=== PATIENT | female | born 1950 | race Caucasian/White ===

== ENCOUNTER 2021-10-31 15:00 | Outpatient (RCR) | payer MEDICARE, OTHER, SELFPAY | END 2021-11-14 15:09 | disposition home or self-care (01) | LOC: HO.PT 15:00 | PROVIDERS: Visit Provider Physician Assistant Surgical | DX: M70.62 Trochanteric bursitis, left hip (principal) | CPT/HCPCS: 97110; 97140; 97161; 97530; 97535 ==

== ENCOUNTER → 2021-12-19 13:23 | Outpatient (BNVA) | payer MEDICARE, OTHER, SELFPAY | DX: N39.0 Urinary tract infection, site not specified (principal) | CPT/HCPCS: 51798; 99202 ==

== ENCOUNTER → 2022-01-19 13:16 | Outpatient (BNVA) | payer MEDICARE, OTHER, SELFPAY | DX: Z13.89 Encounter for screening for other disorder (principal) | CPT/HCPCS: Q3014 ==

== ENCOUNTER 2022-04-14 11:36 | Outpatient (REF) | payer MEDICARE, OTHER, SELFPAY | END 2022-04-14 11:37 | disposition home or self-care (01) | LOC: HO.10HDL 11:36 | DX: N39.0 Urinary tract infection, site not specified (principal) | CPT/HCPCS: 87086 ==

== ENCOUNTER 2022-05-09 07:55 | Outpatient (REF) | payer MEDICARE, OTHER, SELFPAY ==
[2022-05-09 11:14] LABS: Cortisol Random < 1.0 ug/dL
== END 2022-05-09 07:56 | disposition home or self-care (01) ==
LOC: HO.LAB 07:55
PROVIDERS: Visit Provider Internal Medicine
DX: T14.8XXA Other injury of unspecified body region, initial encounter (principal)
CPT/HCPCS: 36415; 82533

== ENCOUNTER 2022-05-11 09:49 | Outpatient (REF) | payer MEDICARE, OTHER, SELFPAY ==
[2022-05-18 10:12] LABS: Total Volume, 24 Hr Urine NTV mL
== END 2022-05-11 09:50 | disposition home or self-care (01) ==
LOC: HO.LNP 09:49
PROVIDERS: Visit Provider Internal Medicine
DX: T14.8XXA Other injury of unspecified body region, initial encounter (principal)
CPT/HCPCS: 82530

== ENCOUNTER → 2023-02-17 08:44 | Outpatient (BNVA) | payer MEDICARE, OTHER, SELFPAY | PROVIDERS: Visit Provider Nurse Practitioner Family | DX: N39.0 Urinary tract infection, site not specified (principal) | CPT/HCPCS: 51798; 99212 ==

== ENCOUNTER 2023-12-30 13:00 | Outpatient (RCR) | payer MEDICARE, OTHER, SELFPAY | END 2023-12-30 15:36 | disposition home or self-care (01) | LOC: HO.PT 13:00 | PROVIDERS: PCP Internal Medicine; Visit Provider Physician Assistant | DX: M17.0 Bilateral primary osteoarthritis of knee (principal) | CPT/HCPCS: 97110; 97112; 97161 ==

== ENCOUNTER 2024-04-12 14:30 | Outpatient (AMB) | payer MEDICARE, OTHER, SELFPAY ==
--- NOTE | 2024-04-12 14:38 | A.OFFVIS_ITS ---
Intake Visit Reasons: 1y/PVR Intake Note: Patient is present for follow up recurrent uti Urology Medications: estrace Blood Thinner: none PVR: 0ml's Head Girls Golf Coach Required: No Accompanied by: Self / Same As Patient Allergies No Known Allergies Allergy (Verified 04/12/24 15:00) Medication List - Last Reconciled 04/12/24 by BERLIN Palacios ciprofloxacin HCl 250 mg orally 3X/WEEK; 90 days estradiol 0.01%(0.1mg/gram) (Estrace) pea sized amount per urethra daily; 30 days gabapentin 100 mg PO BEDTIME lisinopril 2.5 mg PO DAILY lorazepam 0.5 mg PO BEDTIME PRN meloxicam 15 mg PO DAILY HPI Comments Details: Pam is a pleasant 73-year-old female patient. She has a past medical history of dysuria, hypertension, insomnia, and recurrent urinary tract infections. She presents to the office today for follow-up of her recurrent urinary tract infections. When asked she reports to be doing and feeling well. She reports compliance with prophylactic ciprofloxacin as prescribed as well as her Estrace cream. She discusses how helpful this has been as she had previously been experiencing multiple urinary tract infections. She reports ever since having her last microgen 12/30 and being treated per results she has been without any UTI's or UTI symptoms. She denies urinary urgency, urinary frequency, incontinence, nocturia, hematuria, dysuria, foul smelling urine, changes to urinary stream, flank pain, fever, and or chills. She is happy with her current voiding parameters. In office urinalysis within normal limits. PVR 0 mL. Patient otherwise denies any issues or concerns at this time. [facility] Medical History Recurrent urinary tract infection Acute insomnia HTN (hypertension) Dysuria Review of Systems Const All systems reviewed & are unremarkable except as noted in HPI and below Reports no additional complaints Eyes Reports no additional complaints ENT Reports no additional complaints Card Reports as per HPI Resp Reports no additional complaints GI Reports no additional complaints Reports as per HPI Musc Reports no additional complaints Neuro Reports no additional complaints Psych Reports no additional complaints Endo Reports no additional complaints Matthew/Lymph Reports no additional complaints Aller/Immun Reports no additional complaints Physical Exam Const General: cooperative, healthy appearing, comfortable, no acute distress, well developed, alert and awake Orientation/consciousness: patient oriented x3 Limitations: no limitations HEENT Head: Yes normal to inspection, Yes normocephalic and Yes atraumatic Ears: hearing grossly normal bilaterally Eyes General: appearance normal, both eyes and all related structures Neck Neck: Yes normal visual inspection and Yes trachea midline Chest Chest palpation & inspection: normal inspection of the chest Resp Effort & Inspection: normal respiratory effort and able to speak in complete sentences Cardio Rate: regular rate GI Inspection: Yes normal to inspection General: Yes no CVA tenderness Back/Spine/Pelvis Back: no CVA tenderness Skin General skin exam: no rashes or lesions noted Neuro General: patient oriented x3 Extrem General: Yes normal to inspection Psych Appearance: grossly normal and well kempt Mental Status: mental status grossly normal Speech and movement: Normal speech and movement present and Clear speech present Affect: normal affect Attitude: cooperative Thought process: Normal thought process present Thought content: Normal thought content present Insight: Fair insight present (Psych) Judgement: Fair judgement present (Psych) Results AMB Urinalysis, Automated UA Leukoctes 0 Evy/uL Last Edit by [employer] on 04/12/24 14:54 UA Nitrite Negative Last Edit by [employer] on 04/12/24 14:54 UA Urobilinogen 0.2 mg/dL Last Edit by [employer] on 04/12/24 14:54 UA Protein 0 mg/dL Last Edit by [employer] on 04/12/24 14:54 UA pH 6.0 Last Edit by [employer] on 04/12/24 14:54 UA Blood 0 Graeme/uL Last Edit by [employer] on 04/12/24 14:54 UA Specific Buckeye 0 Last Edit by [employer] on 04/12/24 14:54 UA Ketone Negative Last Edit by [employer] on 04/12/24 14:54 UA Bilirubin 0 mg/dL Last Edit by [employer] on 04/12/24 14:54 UA Glucose 0 mg/dL Last Edit by [employer] on 04/12/24 14:54 Results Reviewed Results Reviewed: Laboratory Last Values Urine pH (Auto) 6.0 04/12/24 14:50 Specific Buckeye (Auto) 0 04/12/24 14:50 Urine Protein (Auto) 0 mg/dL 04/12/24 14:50 Glucose (UA)(Auto) 0 mg/dL 04/12/24 14:50 Urine Ketones (Auto) Negative 04/12/24 14:50 Urine Blood (Auto) 0 Graeme/uL 04/12/24 14:50 Urine Nitrite (Auto) Negative 04/12/24 14:50 Urine Bilirubin (Auto) 0 mg/dL 04/12/24 14:50 Urine Urobilinogen (Auto) 0.2 mg/dL 04/12/24 14:50 Leukocyte Esterase (Auto) 0 Evy/uL 04/12/24 14:50 Assessment & Plan Assessment & Plan (1) Recurrent urinary tract infection: Code(s): N39.0 - Urinary tract infection, site not specified Category: Medical Plan In office urinalysis with the patient today; as noted above. PVR 0ml's. She reports be happy with current voiding parameters. She currently denies any bothersome urinary issues or concerns. Continue Estrace cream and Cipro as prescribed; refills provided Discussed UTI prevention with D mannose supplement, vitamin-C, increasing fluid intake, behavioral therapy with timed voiding, perineal hygiene and postcoital voiding, and management of constipation with stool softeners and increased fiber intake. Follow up in 1 year with PVR; or sooner with any issues, concerns, and or questions. Orders: Orders AMB Urinalysis Automated Today Z13.9 - Encounter for screening, unspecified Medications: Refilled ciprofloxacin HCl 250 mg orally 3X/WEEK; 36 tabs 4RF 90 days Patient Instructions: The patient had an opportunity to ask questions regarding the treatment plan. All questions were answered. Physical exam, labs, and imaging were discussed and reviewed in detail. As well as risks, benefits, and discussion of treatment choices. No major barriers to understanding were identified. The patient expressed understanding and agreement with the above treatment plan. The patient was made aware they should contact our office by phone for worsening of their current condition, the appearance of new symptoms, or with any questions or concerns. Compliance is encouraged with any medications and follow up testing that is ordered. It is a privilege to be allowed the opportunity to participate in? your urological care.? Again, if you have any questions or concerns If you have any questions or concerns please do not hesitate to contact me. The office is [phone]. This note is constructed using voice recognition software. While every effort has been made to ensure accuracy deputy assessor errors may have been included. Yours sincerely, BERLIN Palacios Coding Level of Care Code Est Pt Level 3 (11779) Diagnoses Recurrent urinary tract infection N39.0
== END 2024-04-12 15:07 | disposition home or self-care (01) ==
PROVIDERS: Visit Provider Nurse Practitioner Family
DX: N39.0 Urinary tract infection, site not specified (principal); Z13.9 Encounter for screening, unspecified
CPT/HCPCS: 99213

== ENCOUNTER → 2024-04-12 14:30 | Outpatient (BNVA) | payer MEDICARE, OTHER, SELFPAY | PROVIDERS: Visit Provider Nurse Practitioner Family | DX: N39.0 Urinary tract infection, site not specified (principal) | CPT/HCPCS: 81003; 99212 ==

== ENCOUNTER 2024-05-09 09:40 | Outpatient (AMB) | payer MEDICARE, OTHER, SELFPAY ==
--- NOTE | 2024-05-09 09:47 | MHC.PC.OV ---
Vital Signs 05/09/24 09:49 Height 5 ft 8.75 in Weight 170 lb BMI 25.3 BP 138/74 Blood Pressure Location Rt brachial Position Sitting Pulse 84 Pulse Source Pulse Oximeter Pulse Oximetry (%) 99 Oxygen Delivery Method Room Air Intake Visit Reasons: BI TECHNICAL LEAD Visit Intake Note: Patient is here to establish care with [facility] Primary [facility]. Patient states she takes Bedtime Bettys at night for insomnia. Computer Security Coordinator Required: No Accompanied by: Self / Same As Patient Allergies No Known Allergies Allergy (Verified 05/09/24 09:55) Medication List - Last Reconciled 05/09/24 by Chery Weber MD ciprofloxacin HCl 250 mg orally 3X/WEEK; 90 days estradiol 0.01%(0.1mg/gram) (Estrace) pea sized amount per urethra daily; 30 days gabapentin 300 mg PO DAILY lisinopril 2.5 mg PO DAILY lorazepam 0.5 mg PO BEDTIME PRN meloxicam 15 mg PO DAILY Tobacco use date assessed: 05/09/24 Last assessed Fall Risk: 05/09/24 Dental Screening Dental Screen Date: 05/09/24 HPI HPI Comments History of Present Illness Details The patient is a 73 year old with past medical history of dysuria, hypertension, insomnia, and recurrent urinary tract infections. Transfer from [place]-Dr Velsaquez. Also following with [facility], Dr Cheek. CV: On lisinopril 2.5mg daily. Denies chest pain, exertional dyspnea. Had cardiac testing, pulmonary testing-within normal. MSK: On meloxicam 15mg daily. Bilateral knee pain-OA, hip bursitis. Urologic She reports compliance with prophylactic ciprofloxacin as prescribed as well as her Estrace cream. She discusses how helpful this has been as she had previously been experiencing multiple urinary tract infections. She reports ever since having her last microgen 12/30 and being treated per results she has been without any UTI's or UTI symptoms. She denies urinary urgency, urinary frequency, incontinence, nocturia, hematuria, dysuria, foul smelling urine, changes to urinary stream, flank pain, fever, and or chills. She is happy with her current voiding parameters. In office urinalysis within normal limits. PVR 0 mL. Patient otherwise denies any issues or concerns at this time. BH: Follows with Dr Novak. nightly takes gabapentin, THC taffy, and unisom. On lorazepam 0.5mg at bedtime as needed (if it has been like 24 hours) Preventive Mammo 09/01/2022 Colonoscopy 03/2021 Hyperplastic polyp-advised 5 year repeat. ROS see HPI PHYSICAL EXAM: GENERAL: Alert and oriented x 3. NAD EYES: EOMI. Anicteric. HENT: Moist mucous membranes. No scleral icterus. No cervical lymphadenopathy. LUNGS: Clear to auscultation bilaterally. CARDIOVASCULAR: Regular rate and rhythm. No murmur. No JVD. ABDOMEN: Soft, non-tender +bs EXTREMITIES: No edema. Non-tender. SKIN: No rashes or lesions. Warm. NEUROLOGIC: No focal neurological deficits. CN II-XII grossly intact PSYCHIATRIC: Cooperative. Appropriate mood and affect [facility] Medical History Dry skin Arthritis History of mammogram Recurrent urinary tract infection Acute insomnia HTN (hypertension) Dysuria Surgical History History of colonoscopy Family History Mother Hypertension High blood cholesterol Cardiovascular disease Brother Hypertension High blood cholesterol Stroke Brain cancer Alcoholism Sister Hypertension High blood cholesterol Stroke Colon cancer Alcoholism Social History Household Members: Family Housing: House Are you a primary geriatric personal care aide to a significant other at home: No Do you presently have visiting nurse or other home services: No Alcohol intake: current Alcohol intake frequency: a few times a month Alcohol type: wine and hard liquor Patient Tobacco Use Status: Former Tobacco user Tobacco use type: Cigarette e-Cigarette/Vaping Use: Never Used Substance Use Type: Marijuana service: No Current occupational status: retired Cognitive needs: No Hearing needs: No Vision needs: Yes (wears glasses) Questionnaire PHQ-9 Over the last 2 weeks, how often have you been bothered by any of the following problems? 1. Little interest or pleasure in doing things: not at all 2. Feeling down, depressed, or hopeless: not at all 3. Trouble falling or staying asleep, or sleeping too much: several days 4. Feeling tired or having little energy: several days 5. Poor appetite or overeating: not at all 6. Feeling bad about yourself - or that you are a failure or have let yourself or your family down: not at all 7. Trouble concentrating on things, such as reading the newspaper or watching television: not at all 8. Moving or speaking so slowly that other people could have noticed. Or the opposite - being so fidgety or restless that you have been moving around a lot more than usual: not at all 9. Thoughts that you would be better off or of hurting yourself in some way: not at all Total score: 2 Depression Screening Interpretation: Negative (neg) Depression Screening Done: Yes 74528 - PHQ-9 Billing: Yes Source: Developed by Drs. Hemanth Osuna, Analy Maki, Gianfranco Peter and colleagues, with an educational sharon from [employer] Thrive Questionnaire Date Thrive assessed: 05/09/24 I am a: Patient What is your living situation today?: I have a steady place to live Within the past 12 months, did the food you bought not last and you didn't have the money to get more?: Never true Within the past 12 months, did you worry whether your food would run out before you got money to buy more?: Never true Do you have trouble paying for medicines?: No Do you have trouble getting transportation to medical appointments?: No Do you have trouble paying your heating and electricity bill?: No Do you have trouble taking care of your child, family member or friend?: Yes Do you have trouble with day-to-day activities such as bathing, preparing meals, shopping, managing finances, etc.?: No Are you currently unemployed and looking for a job?: No Are you interested in more education?: No Please select the resources that you would like help with: None Currently or been in a relationship where the following occur: No concerns reported THRIVE Score: 0 AUDIT C Alcohol Use Questionnaire (AUDIT-C) 1. How often do you have a drink containing alcohol?: 2-4 times a month 2. How many drinks containing alcohol do you have on a typical day when you are drinking?: 1 or 2 3. How often do you have six or more drinks on one occasion?: Never Total Score: 2 TRACIE-7 AMB Questionnaire TRACIE-7 Date TRACIE - 7 assessed: 05/09/24 Feeling nervous, anxious, or on edge: 0 = Not at all Not being able to stop or control worryin = Not at all Worrying too much about different things: 0 = Not at all Trouble relaxin = Not at all Being so restless that it is hard to sit still: 0 = Not at all Becoming easily annoyed or irritable: 0 = Not at all Feeling afraid as if something awful might happen: 1 = Several days Total TRACIE-7 score (0-4 normal; 5-9 mild; 10-14 moderate; 15-21 severe): 1 Source: Developed by Drs. Hemanth Osuna, Analy Maki, Gianfranco Peter and colleagues, with an educational sharon from [employer] TRACIE-7 Assessment Billing TRACIE-7 Assessment Tool: TRACIE-7 Assessment 02257 Physical exam (Primary Care) Vital Signs: Last Vital Signs Pulse 84 05/09/24 09:49 BP 138/74 05/09/24 09:49 Pulse Ox 99 05/09/24 09:49 Oxygen Delivery Method Room Air 05/09/24 09:49 BMI result Body Mass Index 25.3 Tobacco/Smoking Status: Tobacco use Status Tobacco use date assessed 05/09/24 05/09/24 09:59 Patient Tobacco Use Status Former Tobacco user 05/09/24 10:02 Tobacco use type Cigarette 05/09/24 10:02 e-Cigarette/Vaping Use Never Used 05/09/24 10:02 PHQ-9: PHQ-9 Score PHQ-9: Total score 2 05/24/24 11:30 Depression Screening Interpretation: Negative (neg) Thrive Assessment: Date of Thrive Assessment Date Thrive assessed 05/09/24 05/09/24 10:12 Currently or been in a relationship where the following occur: No concerns reported Assessment and Plan Assessment & Plan (1) Encounter to establish care: Code(s): Z76.89 - Persons encountering health services in other specified circumstances Plan: 73 y/o to establish care. pmh, surgical, social and family history reviewed. chart updated. myalgia, arthralgia-labs ordered (2) Muscle cramping: Code(s): R25.2 - Cramp and spasm (3) HTN (hypertension): Code(s): I10 - Essential (primary) hypertension Qualifiers: Hypertension type: primary hypertension Qualified Code(s): I10 - Essential (primary) hypertension Plan: continue current medications (4) Arthritis: Code(s): M19.90 - Unspecified osteoarthritis, unspecified site Plan: labs ordered c/w mobic Orders: Orders MM screening mammo BI 05/09/24 Z12.31 - Encounter for screening mammogram for malignant neoplasm of breast Cyclic Citrullinated Peptide 05/09/24 Z13.0 - Encounter for screening for diseases of the blood and blood-forming organs and certain disorders involving the immune mechanism, R25.2 - Cramp and spasm, I10 - Essential (primary) hypertension, M19.90 - Unspecified osteoarthritis, unspecified site IRON PROFILE 05/09/24 Z13.0 - Encounter for screening for diseases of the blood and blood-forming organs and certain disorders involving the immune mechanism, R25.2 - Cramp and spasm, I10 - Essential (primary) hypertension, M19.90 - Unspecified osteoarthritis, unspecified site XR DEXA axial skeleton 05/09/24 M89.9 - Disorder of bone, unspecified, M94.9 - Disorder of cartilage, unspecified Complete Blood Count Auto Diff 05/09/24 Z13.0 - Encounter for screening for diseases of the blood and blood-forming organs and certain disorders involving the immune mechanism, R25.2 - Cramp and spasm, I10 - Essential (primary) hypertension, M19.90 - Unspecified osteoarthritis, unspecified site Comprehensive Met. Panel 05/09/24 Z13.0 - Encounter for screening for diseases of the blood and blood-forming organs and certain disorders involving the immune mechanism, R25.2 - Cramp and spasm, I10 - Essential (primary) hypertension, M19.90 - Unspecified osteoarthritis, unspecified site TSH reflex Free T4 05/09/24 Z13.0 - Encounter for screening for diseases of the blood and blood-forming organs and certain disorders involving the immune mechanism, R25.2 - Cramp and spasm, I10 - Essential (primary) hypertension, M19.90 - Unspecified osteoarthritis, unspecified site Magnesium 05/09/24 Z13.0 - Encounter for screening for diseases of the blood and blood-forming organs and certain disorders involving the immune mechanism, R25.2 - Cramp and spasm, I10 - Essential (primary) hypertension, M19.90 - Unspecified osteoarthritis, unspecified site Rheumatoid Factor 05/09/24 Z13.0 - Encounter for screening for diseases of the blood and blood-forming organs and certain disorders involving the immune mechanism, R25.2 - Cramp and spasm, I10 - Essential (primary) hypertension, M19.90 - Unspecified osteoarthritis, unspecified site Referrals Dermatology Referral D69.2 - Other nonthrombocytopenic purpura Coding Level of Care Code New Pt Level 4 (08279) Complex EM visit Add On G2211 Diagnoses Encounter to establish care Z76.89 Muscle cramping R25.2 Primary hypertension I10 Hypertension type: primary hypertension Arthritis M19.90 Additional Codes TRACIE-7 Assessment Billing - TRACIE-7 Assessment Tool: TRACIE-7 Assessment [id number] ([id number])
[2024-05-09 09:49] VITALS: BP 138/74; PULSE 84; O2SAT 99; BMI 25.3
== END 2024-05-09 11:14 | disposition home or self-care (01) ==
PROVIDERS: PCP Internal Medicine; Visit Provider Internal Medicine
DX: R25.2 Cramp and spasm (principal); I10 Essential (primary) hypertension; M19.90 Unspecified osteoarthritis, unspecified site; Z76.89 Persons encountering health services in other specified circumstances
CPT/HCPCS: 99204; G2211

== ENCOUNTER 2024-05-09 11:46 | Outpatient (REF) | payer MEDICARE, OTHER, SELFPAY ==
[2024-05-09 16:47] LABS: MANUAL DIFF FLAG NO
[2024-05-09 17:01] LABS: Basophils Absolute Auto 0.1 X10*3/uL (0.0-0.2); Basophils Percent Auto 1.8 % (0-2); Eosinophils Absolute Auto 0.2 X10*3/uL (0.0-0.4); Eosinophils Percent Auto 3.3 % (0-4); Hematocrit 42.2 % (37.0-47.0); Hemoglobin 13.6 g/dl (12.0-16.0); Imm Gran Abs Auto 0.02 X10*3/uL (0.00-0.03); Imm Gran Pct Auto 0.3 % (0.0-0.4); Lymphocytes Absolute Auto 2.3 X10*3/uL (1.2-4.9); Lymphocytes Percent Auto 37.3 % (20-40); Mean Corpuscular HGB Conc 32.2 g/dl (31.0-35.0); Mean Corpuscular Hemoglobin 30.1 pg (27.0-33.0); Mean Corpuscular Volume 93.4 fL (80.0-98.0); Monocytes Absolute Auto 0.7 X10*3/uL (0.1-1.2); Monocytes Percent Auto 11.6 % (2-11); Neutrophils Absolute Auto 2.8 x10*3/uL (2.0-8.3); Neutrophils Percent Auto 45.7 % (45-73); Platelet Count 260 X10*3/uL (160-400); Red Blood Count 4.52 X10*6/uL (4.20-5.50); Red Cell Distribution Width 13.7 % (11.0-16.0); White Blood Count 6.1 X10*3/uL (4.8-10.8)
[2024-05-09 17:30] LABS: Alanine Aminotransferase 11 U/L (0-31); Albumin Level 4.1 g/dL (3.5-5.0); Alkaline Phosphatase 105 U/L (39-117); Anion Gap 13 (12-20); Aspartate Amino Transferase 21 U/L (5-31); Bilirubin Total 0.4 mg/dL (0.0-1.0); Blood Urea Nitrogen 17 mg/dL (9-16); Calcium 10.5 mg/dL (8.4-10.2); Carbon Dioxide 25 mmol/L (22-29); Chloride 107 mmol/L (96-108); Estimated Glomerular Filt Rate > 60; Glucose Random 99 mg/dL (60-115); Iron 107 mcg/dL (30-160); Magnesium 2.3 mg/dL (1.6-2.6); Percent Iron Saturation 33 % (15-50); Potassium 4.9 mmol/L (3.3-5.1); Sodium 140 mmol/L (135-145); Total Iron Binding Capacity 328 mcg/dL (228-428); Total Protein 7.1 g/dL (6.5-8.0); Unsaturated Iron Binding 221 ug/dL
[2024-05-09 18:02] LABS: TSH reflex Free T4 1.69 uIU/mL (0.32-4.0)
[2024-05-09 18:12] LABS: Rheumatoid Factor < 13.0 IU/mL (<15.0)
[2024-05-15 09:17] LABS: Cyclic Citrullinated Peptide <16 UNITS
== END 2024-05-09 11:47 | disposition home or self-care (01) ==
LOC: HO.WFDLDS 11:46
PROVIDERS: Visit Provider Internal Medicine
DX: M19.90 Unspecified osteoarthritis, unspecified site (principal); Z13.0 Encounter for screening for diseases of the blood and blood-forming organs and certain disorders involving the immune mechanism; I10 Essential (primary) hypertension; R25.2 Cramp and spasm
CPT/HCPCS: 36415; 80053; 83540; 83735; 84443; 85025; 86200; 86431

== ENCOUNTER 2025-04-10 11:23 | Outpatient (AMB) | payer MEDICARE, OTHER, SELFPAY ==
--- NOTE | 2025-04-10 11:29 | MHC.OFFVIS ---
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 Isidra Gibson. She has a past medical history of dysuria, hypertension, insomnia, and recurrent urinary tract infections. She presents to the office today for follow-up of her recurrent urinary tract infections. When asked she reports to be doing and feeling well. She reports compliance with prophylactic ciprofloxacin 3 times per week as prescribed as well as her Estrace cream. She discusses how helpful this has been as she had previously been experiencing multiple urinary tract infections. She reports ever since having her last microgen 12/30 and being treated per results she has been without any UTI's or UTI like symptoms. She denies urinary urgency, urinary frequency, incontinence, nocturia, hematuria, dysuria, foul smelling urine, changes to urinary stream, flank pain, fever, and or chills. She is happy with her current voiding parameters. In office urinalysis results reviewed with the patient today.. PVR 38 mL. She does discuss her longstanding history of insomnia and has followed up with a sleep provider for many years and has been told this is familial. She otherwise denies any issues or concerns at this time. [facility] Medical History Dry skin Arthritis History of mammogram Recurrent urinary tract infection Acute insomnia HTN (hypertension) Dysuria Surgical History History of colonoscopy Family History Mother Hypertension High blood cholesterol Cardiovascular disease Brother Hypertension High blood cholesterol Stroke Brain cancer Alcoholism Sister Hypertension High blood cholesterol Stroke Colon cancer Alcoholism Social History Household Members: Family Housing: House Are you a primary child care specialist to a significant other at home: No Do you presently have visiting nurse or other home services: No 75 years or older and lives alone: No Alcohol intake: current Alcohol intake frequency: a few times a month Alcohol type: wine and hard liquor Patient Tobacco Use Status: Former Tobacco user Tobacco use type: Cigarette e-Cigarette/Vaping Use: Never Used Substance Use Type: Marijuana service: No Current occupational status: retired Cognitive needs: No Hearing needs: No Vision needs: Yes (wears glasses) Review of Systems Const All systems reviewed & are unremarkable except as noted in HPI and below Reports no additional complaints Eyes Reports no additional complaints ENT Reports no additional complaints Card Reports as per HPI Resp Reports no additional complaints GI Reports no additional complaints Reports as per HPI Musc Reports no additional complaints Neuro Reports no additional complaints Psych Reports no additional complaints Endo Reports no additional complaints Matthew/Lymph Reports no additional complaints Aller/Immun Reports no additional complaints Physical Exam Const General: cooperative, healthy appearing, comfortable, no acute distress, well developed, alert and awake Orientation/consciousness: patient oriented x3 Limitations: no limitations HEENT Head: Yes normal to inspection, Yes normocephalic and Yes atraumatic Ears: hearing grossly normal bilaterally Eyes General: appearance normal, both eyes and all related structures Neck Neck: Yes normal visual inspection and Yes trachea midline Chest Chest palpation & inspection: normal inspection of the chest Resp Effort & Inspection: normal respiratory effort and able to speak in complete sentences Cardio Rate: regular rate GI Inspection: Yes normal to inspection General: Yes no CVA tenderness Back/Spine/Pelvis Back: no CVA tenderness Skin General skin exam: no rashes or lesions noted Neuro General: patient oriented x3 Extrem General: Yes normal to inspection Psych Appearance: grossly normal and well kempt Mental Status: mental status grossly normal Speech and movement: Normal speech and movement present and Clear speech present Affect: normal affect Attitude: cooperative Thought process: Normal thought process present Thought content: Normal thought content present Insight: Fair insight present (Psych) Judgement: Fair judgement present (Psych) Office Procedures Post Void Residual Post Residual Void Post Void Residual (PVR): [id number] Void Residual by ultrasound Results AMB Urinalysis, Automated UA Leukoctes 0 Evy/uL Last Edit by Tamiko Castillo [facility] on 04/10/25 11:44 UA Nitrite [facility] on 04/10/25 11:44 UA Urobilinogen 0.2 mg/dL Last Edit [facility], [facility] on 04/10/25 11:44 UA Protein 0 mg/dL Last Edit [facility], [facility] on 04/10/25 11:44 UA pH 6.0 Last Edit by [facility], [facility] on 04/10/25 11:44 UA Blood 0 Graeme/uL [facility], [facility] on 04/10/25 11:44 UA Specific [place] 1.010 Last Edit by [facility] Atiya, [facility] on 04/10/25 11:44 UA Ketone Last Edit by [facility], [facility] on 04/10/25 11:44 UA Bilirubin 0 mg/dL Last Edit by [facility], [facility] on 04/10/25 11:44 UA Glucose 0 mg/dL Last Edit by [facility], [facility] on 04/10/25 11:44 Results Reviewed Results Reviewed: Laboratory Last Values Urine pH (Auto) 6.0 04/10/25 11:43 Specific [place] (Auto) 1.010 04/10/25 11:43 Urine Protein (Auto) 0 mg/dL 04/10/25 11:43 Glucose (UA)(Auto) 0 mg/dL 04/10/25 11:43 Urine Blood (Auto) 0 Graeme/uL 04/10/25 11:43 Urine Bilirubin (Auto) 0 mg/dL 04/10/25 11:43 Urine Urobilinogen (Auto) 0.2 mg/dL 04/10/25 11:43 Leukocyte Esterase (Auto) 0 Evy/uL 04/10/25 11:43 Assessment & Plan Assessment & Plan (1) Recurrent urinary tract infection: Code(s): N39.0 - Urinary tract infection, site not specified Category: Medical Plan In office urinalysis results with the patient today; as noted above. PVR 38 mL. Continue Cipro and Estrace cream as prescribed; refill provided. She currently denies any bothersome urinary issues or concerns. She reports be happy with current voiding parameters. Discussed UTI prevention with D mannose supplement, vitamin-C, increasing fluid intake, behavioral therapy with timed voiding, perineal hygiene and postcoital voiding, and management of constipation with stool softeners and increased fiber intake. Follow-up in 1 year with PVR; or sooner with any issues, concerns, and or questions. Orders: Orders AMB Urinalysis Automated Today Z13.9 - Encounter for screening, unspecified AMB Post Void Residual by ultrasound Today N39.0 - Urinary tract infection, site not specified Medications: Changed From estradiol 0.01%(0.1mg/gram) (Estrace) pea sized amount per urethra daily; 42.5 grams 3RF complicated uti 30 days N39.0 - Urinary tract infection, site not specified To estradiol 0.01%(0.1mg/gram) (Estrace) pea sized amount per urethra daily; 42.5 grams 3RF complicated uti 90 days N39.0 - Urinary tract infection, site not specified Refilled ciprofloxacin HCl 250 mg orally 3X/WEEK; 36 tabs 4RF 90 days Coding Level of Care Code Est Pt Level 3 (34999) Complex EM visit Add On G2211 Diagnoses Recurrent urinary tract infection N39.0 CPT Codes Post Residual Void - PVR CPT Code: 01418-Rkyy Void Residual by ultrasound ([id number])
== END 2025-04-10 11:49 | disposition home or self-care (01) ==
LOC: HO.HUSH 11:23
PROVIDERS: PCP Internal Medicine; Visit Provider Nurse Practitioner Family
DX: Z13.9 Encounter for screening, unspecified (principal); N39.0 Urinary tract infection, site not specified
CPT/HCPCS: 99213; G2211

== ENCOUNTER → 2025-04-10 11:23 | Outpatient (BNVA) | payer MEDICARE, OTHER, SELFPAY | PROVIDERS: PCP Internal Medicine; Visit Provider Nurse Practitioner Family | DX: N39.0 Urinary tract infection, site not specified (principal); Z79.2 Long term (current) use of antibiotics; Z79.899 Other long term (current) drug therapy | CPT/HCPCS: 51798; 81003; 99212 ==